=== PATIENT | female | born 1970 | race Caucasian/White ===

== ENCOUNTER 2021-05-31 07:29 | Day surgery (SDC) | payer OTHER, MEDICAID, SELFPAY ==
[~2021-05-31] VITALS: Ht 144.8 cm; Wt 50.3 kg
[2021-05-31] MEDS ORDERED: BENZOCAINE 20% GEL 32 GM BOTTLE MM ONE (11:15)
[2021-05-31] MEDS ORDERED: NS 100 ML BAG ONE (11:15)
[2021-05-31] MEDS ORDERED: ARTICAINE HCL/EPINEPHRINE 4%/1:200,000 BIT 1.7 ML CARTRIDGE IJ ONE (11:15)
[2021-05-31] MEDS ORDERED: NS IRRIG SOLN 1000 ML IR ONE (11:15)
[2021-05-31 12:56] VITALS: BP_SYST 134
== END 2021-05-31 11:30 | disposition home or self-care (01) ==
LOC: SDS 07:29
PROVIDERS: ATTEND Dentist General Practice
DX: M27.2 Inflammatory conditions of jaws (principal); K05.6 Periodontal disease, unspecified; I10 Essential (primary) hypertension; K21.9 Gastro-esophageal reflux disease without esophagitis; G58.8 Other specified mononeuropathies; M47.816 Spondylosis without myelopathy or radiculopathy, lumbar region; Z98.84 Bariatric surgery status; Z79.899 Other long term (current) drug therapy; Z20.822 Contact with and (suspected) exposure to COVID-19
CPT/HCPCS: 21026; 21215; 21248; 36415; 70140; 87426; C1713 ×2

== ENCOUNTER 2021-06-07 07:01 | Day surgery (SDC) | payer OTHER, MEDICAID, SELFPAY ==
[~2021-06-07] VITALS: Ht 149.9 cm; Wt 49.0 kg
[2021-06-07 09:55] VITALS: BP_SYST 126
[2021-06-07] MEDS ORDERED: NS 250 ML BAG IV ONE (10:11)
[2021-06-07] MEDS ORDERED: BENZOCAINE 20% GEL 32 GM BOTTLE MM ONE (10:11)
[2021-06-07] MEDS ORDERED: ARTICAINE HCL/EPINEPHRINE 4%/1:200,000 BIT 1.7 ML CARTRIDGE IJ ONE (10:11)
[2021-06-07] MEDS ORDERED: NS IRRIG SOLN 1000 ML IR ONE (10:11)
== END 2021-06-07 09:55 | disposition home or self-care (01) ==
LOC: SDS 07:01 → SMU 07:11 → SDS 09:55
PROVIDERS: ATTEND Dentist General Practice
DX: M27.2 Inflammatory conditions of jaws (principal); I10 Essential (primary) hypertension; K21.9 Gastro-esophageal reflux disease without esophagitis; M79.2 Neuralgia and neuritis, unspecified; M47.816 Spondylosis without myelopathy or radiculopathy, lumbar region; Z79.899 Other long term (current) drug therapy; Z20.822 Contact with and (suspected) exposure to COVID-19
CPT/HCPCS: 21025; 21215; 21248; 36415; 70140; 87426; C1713 ×2; J7050

== ENCOUNTER 2021-06-27 06:56 | Day surgery (SDC) | payer OTHER, MEDICAID ==
[~2021-06-27] VITALS: Ht 144.8 cm; Wt 48.3 kg
[2021-06-27 07:44] LABS: HCG,QUAL RESULT NEGATIVE (NEGATIVE)
[2021-06-27] MEDS ORDERED: BENZOCAINE 20% GEL 32 GM BOTTLE MM ONE (08:00)
[2021-06-27] MEDS ORDERED: NS 1000 ML IV.SOLN IV ONE (08:00)
[2021-06-27] MEDS ORDERED: NS 250 ML BAG IV ONE (08:00)
[2021-06-27] MEDS ORDERED: ARTICAINE HCL/EPINEPHRINE 4%/1:200,000 BIT 1.7 ML CARTRIDGE IJ ONE (08:00)
[2021-06-27] MEDS ORDERED: MEPIVACAINE HCL 3% 30 MG/ML CARTRIDGE IJ ONE (08:00)
[2021-06-27 11:32] VITALS: BP_SYST 154
== END 2021-06-27 10:05 | disposition home or self-care (01) ==
LOC: SDS 06:56 → SMU 06:58 → SDS 10:05
PROVIDERS: ATTEND Dentist General Practice
DX: M27.2 Inflammatory conditions of jaws (principal); M89.8X0 Other specified disorders of bone, multiple sites; M26.603 Bilateral temporomandibular joint disorder, unspecified; M85.9 Disorder of bone density and structure, unspecified; K05.223 Aggressive periodontitis, generalized, severe; K08.429 Partial loss of teeth due to periodontal diseases, unspecified class; K12.2 Cellulitis and abscess of mouth; M47.816 Spondylosis without myelopathy or radiculopathy, lumbar region; K21.9 Gastro-esophageal reflux disease without esophagitis; I10 Essential (primary) hypertension; K05.6 Periodontal disease, unspecified; G89.4 Chronic pain syndrome; M13.80 Other specified arthritis, unspecified site; Z88.0 Allergy status to penicillin; Z79.899 Other long term (current) drug therapy; Z20.822 Contact with and (suspected) exposure to COVID-19
CPT/HCPCS: 21026; 21210; 21248; 36415; 70140; 84703; 87426; C1713 ×2; J7030; J7050

== ENCOUNTER 2021-08-02 07:43 | Day surgery (SDC) | payer OTHER, MEDICAID ==
[~2021-08-02] VITALS: Ht 144.8 cm; Wt 49.0 kg
[2021-08-02 08:40] LABS: HCG,QUAL RESULT NEGATIVE (NEGATIVE)
[2021-08-02] MEDS ORDERED: BENZOCAINE 20% GEL 32 GM BOTTLE MM ONE (09:30)
[2021-08-02] MEDS ORDERED: NS IRRIG SOLN 1000 ML IR ONE (09:30)
[2021-08-02] MEDS ORDERED: NS 100 ML BAG ONE (09:30)
[2021-08-02] MEDS ORDERED: ARTICAINE HCL/EPINEPHRINE 4%/1:200,000 BIT 1.7 ML CARTRIDGE IJ ONE (09:30)
[2021-08-02 12:17] VITALS: BP_SYST 110
== END 2021-08-02 10:53 | disposition home or self-care (01) ==
LOC: SDS 07:43 → SMU 08:04 → SDS 10:53
PROVIDERS: ATTEND Dentist General Practice
DX: M27.2 Inflammatory conditions of jaws (principal); M89.8X0 Other specified disorders of bone, multiple sites; M26.603 Bilateral temporomandibular joint disorder, unspecified; K05.223 Aggressive periodontitis, generalized, severe; K08.429 Partial loss of teeth due to periodontal diseases, unspecified class; K05.6 Periodontal disease, unspecified; G89.4 Chronic pain syndrome; I10 Essential (primary) hypertension; G62.9 Polyneuropathy, unspecified; K21.9 Gastro-esophageal reflux disease without esophagitis; Z88.0 Allergy status to penicillin; Z88.1 Allergy status to other antibiotic agents; M47.816 Spondylosis without myelopathy or radiculopathy, lumbar region; Z79.899 Other long term (current) drug therapy
CPT/HCPCS: 21025; 21215; 21248; 36415; 70140; 84703; 87426; C1713

== ENCOUNTER 2021-08-16 07:42 | Day surgery (SDC) | payer OTHER, MEDICAID ==
[~2021-08-16] VITALS: Ht 144.8 cm; Wt 49.0 kg
[2021-08-16 08:05] LABS: HCG,QUAL RESULT NEGATIVE (NEGATIVE)
[2021-08-16] MEDS ORDERED: ARTICAINE HCL/EPINEPHRINE 4%/1:200,000 BIT 1.7 ML CARTRIDGE IJ ONE (10:00)
[2021-08-16] MEDS ORDERED: BENZOCAINE 20% GEL 32 GM BOTTLE MM ONE (10:00)
[2021-08-16] MEDS ORDERED: NS IRRIG SOLN 1000 ML IR ONE (10:00)
[2021-08-16 13:43] VITALS: BP_SYST 133
== END 2021-08-16 12:13 | disposition home or self-care (01) ==
LOC: SDS 07:42 → SMU 07:43 → SDS 12:13
PROVIDERS: ATTEND Dentist General Practice
DX: M27.2 Inflammatory conditions of jaws (principal); K05.6 Periodontal disease, unspecified; I10 Essential (primary) hypertension; K21.9 Gastro-esophageal reflux disease without esophagitis; M51.9 Unspecified thoracic, thoracolumbar and lumbosacral intervertebral disc disorder; G89.29 Other chronic pain; M62.838 Other muscle spasm; Z20.822 Contact with and (suspected) exposure to COVID-19; Z79.899 Other long term (current) drug therapy
CPT/HCPCS: 21025; 21248; 36415; 70140; 84703; 87426; C1713

== ENCOUNTER 2021-08-30 07:26 | Day surgery (SDC) | payer OTHER, MEDICAID ==
[~2021-08-30] VITALS: Ht 144.8 cm; Wt 49.0 kg
[2021-08-30 07:50] LABS: HCG,QUAL RESULT NEGATIVE (NEGATIVE)
[2021-08-30] MEDS ORDERED: ARTICAINE HCL/EPINEPHRINE 4%/1:200,000 BIT 1.7 ML CARTRIDGE IJ ONE (10:00)
[2021-08-30] MEDS ORDERED: NS 100 ML BAG ONE (10:00)
[2021-08-30] MEDS ORDERED: NS IRRIG SOLN 1000 ML IR ONE (10:00)
[2021-08-30] MEDS ORDERED: BENZOCAINE 20% GEL 32 GM BOTTLE MM ONE (10:00)
[2021-08-30 12:36] VITALS: BP_SYST 132
== END 2021-08-30 11:30 | disposition home or self-care (01) ==
LOC: SDS 07:26 → SMU 07:28 → SDS 11:30
PROVIDERS: ATTEND Dentist General Practice
DX: M27.2 Inflammatory conditions of jaws (principal); K05.6 Periodontal disease, unspecified; G89.29 Other chronic pain; M47.816 Spondylosis without myelopathy or radiculopathy, lumbar region; I10 Essential (primary) hypertension; K21.9 Gastro-esophageal reflux disease without esophagitis; G62.9 Polyneuropathy, unspecified; Z98.890 Other specified postprocedural states; Z20.822 Contact with and (suspected) exposure to COVID-19; Z79.899 Other long term (current) drug therapy
CPT/HCPCS: 21026; 21210; 21248; 36415; 70140; 84703; 87426; C1713